=== PATIENT | female | born 1965 | race Two or more races ===

== ENCOUNTER 2025-07-16 13:13 | Day surgery (SDC) | payer BC, SELFPAY ==
--- NOTE | 2025-07-11 07:21 | P.HP_ITS ---
History of Present Illness *Admission Date: 07/16/25 *History of present illness: Mrs. Ang is a 59-year-old female who is here for diagnostic/therapeutic EGD. The patient does have recurrent dysphagia with a history of a Schatzki's ring necessitating dilation multiple times. Her last EGD with dilation was in July 2023. She does have some esophageal spasm/dyskinesia and has taken peppermint oil as a smooth muscle relaxant. The patient also has a history of mild EPI with fecal elastase of 124 mcg/g. She also had a C13 sucrose breath test showing 0% sucrose digestion and had been on Starchway. She did have a colonoscopy in July 2023 at which time she had 5 polyps (tubular adenomas x 4/hyperplastic polyp x 1) removed and extensive left-sided diverticulosis. She is on 5-year surveillance interval (July 2028). The examination is deemed medically necessary for diagnostic EGD. The patient has been seen, interviewed and examined prior to the procedure by both myself and the anesthesia provider. [facility] Disclaimer: The information contained in this section may have been updated after the patient was seen, as this information can be updated by other users. Medical History Osteoarthritis History of gastroesophageal reflux (GERD) Hyperlipidemia Surgical History H/O vein stripping History of cholecystectomy H/O foot surgery Hx of breast reduction, elective Family History Father Family history of stroke Mother Family history of cancer Social History (Updated 07/16/25 @ 14:08 by Funmilayo Gerber CRNA) Smoking Status: Never smoker alcohol intake: current substance use type: unknown current occupational status: retired Travel in the last 8 weeks?: None Have you lived/traveled outside [place] in past 30 days?: No Contact w/someone who lives/traveled outside [place] past 30 days?: No Exposure to someone with infectious disease in past 14 days?: No Do you have a fever (greater than 100.4 F or 38 C)?: No Have you tested positive for COVID-19?: No Exposed to someone with COVID-19 in past 14 days?: No Do you have a sore throat?: No Do you have a cough?: No Do you have any weakness?: No Are you experiencing any nausea/vomitting?: No Do you have any diarrhea?: No Are you experiencing any unusual bleeding?: No Do you have any muscle aches/pain?: No Do you have any abdominal pain?: No Are you experiencing loss of taste or smell?: No Review of Systems Review of Systems Review of systems (narrative): Negative *Cardiovascular Comments: Negative *Gastrointestinal Comments: Negative *Genitourinary Comments: Negative *Musculoskeletal Comments: Negative *Neurologic Comments: Negative Meds Home Medications and Allergies Home Medications ?Medication ?Instructions ?Recorded ?Confirmed ?Type ascorbic acid (vitamin C) 250 mg 250 mg PO DAILY 07/1307/13/25 History tablet cholecalciferol (vitamin D3) 100 1,000 unit PO DAILY 1 09/13/24 07/13/25 History mcg (4,000 unit) capsule fluoxetine 20 mg capsule (Prozac) 20 mg PO DAILY 07/1307/13/25 History rosuvastatin 20 mg tablet 20 mg PO DAILY 07/13/2507/02 History turmeric 400 mg capsule 400 mg PO DAILY 07/13/2507/26 History New Prescriptions to Start Prescriptions: Allergies Allergy/AdvReac Type Severity Reaction Status Date / Time No Known Allergies Allergy Verified 07/16/25 13:55 Exam *Routine HEENT Exam Head: Present normocephalic Eye: Present EOMI and PERRL ENT: Present mucous membranes moist *Routine Neck Exam Neck: Present supple *Routine Respiratory Exam Respiratory: Present CTA bilaterally *Routine Cardiovascular Exam Cardiovascular: Present RRR *Routine Abdominal Exam Abdominal: Present soft and normoactive bowel sounds; Absent tenderness *Routine Rectal Exam Rectal:: deferred *Routine Genitalia Exam Genitalia:: deferred *Routine Extremities Exam Extremities: Absent cyanosis, clubbing or edema *Routine Skin Exam Skin: Present warm; Absent rash *Routine Neurological Exam Neurological: Present alert and oriented X3 Assessment and Plan *Assessment and plan (1) Dysphagia: Status: Acute Category: Medical Code(s): R13.10 - Dysphagia, unspecified (2) History of esophageal stricture: Status: Acute Category: Medical Code(s): Z87.19 - Personal history of other diseases of the digestive system (3) Schatzki's ring: Status: Acute Category: Medical Code(s): K22.2 - Esophageal obstruction Plan A/P: 1. Recurrent dysphagia with history of esophageal stricture/Schatzki's ring is the preprocedural diagnosis. The patient will be anesthetized/sedated using MAC sedation. The patient has been seen and examined. Cardiac and lung assessment prior to the examination is stable. Proceed with planned diagnostic/therapeutic EGD.
[2025-07-13 15:13] VITALS: BMI 26.6
--- NOTE | 2025-07-16 06:55 | HMH.PROCNOTE ---
[facility] Procedure Note Date: 07/16/25 Time: 14:53 Procedure Note:: Upper Endoscopy Procedure Report: Esophagogastroduodenoscopy with cold biopsies and TTS balloon dilation Endoscopost: Binu Shore II, MD Referring Physician: Catherine Larkin MD Date of Procedure: July 16, 2025 Equipment: Olympus GIF-1100 standard upper endoscope Sedation: MAC sedation Indications: Mrs. Ang is a 59-year-old female who is here for diagnostic/therapeutic EGD. The patient does have recurrent dysphagia with a history of a Schatzki's ring necessitating dilation multiple times. Her last EGD with dilation was in July 2023. She does have some esophageal spasm/dyskinesia and has taken peppermint oil as a smooth muscle relaxant. The patient also has a history of mild EPI with fecal elastase of 124 mcg/g. She also had a C13 sucrose breath test showing 0% sucrose digestion. The patient did try Creon and Starchway but felt that this was making her symptoms worse. She did have a colonoscopy in July 2023 at which time she had 5 polyps (tubular adenomas x 4/hyperplastic polyp x 1) removed and extensive left-sided diverticulosis. She is on 5-year surveillance interval (July 2028). The examination is deemed medically necessary for diagnostic EGD. Procedure: Prior to the procedure, a history and physical exam was performed, and patient's medications and allergies were reviewed. The risks, benefits and alternatives of the sedation and procedure were discussed with the patient. All questions were answered and informed consent was obtained. The patient was brought to the procedure room. Patient identification and proposed procedure were verified by the physician and the nurse. The patient was placed in a left lateral decubitus position and the scope was passed under direct vision. Throughout the procedure, the patient's blood pressure, pulse, and oxygen saturations were monitored continuously. The upper GI endoscopy was accomplished without difficulty. The patient tolerated the procedure well. Findings: The scope was passed directly into the upper esophagus and advanced to the third portion of the duodenum. The post bulbar duodenum and duodenal bulb were normal with normal mucosa and conniventes. 2 cold biopsies were taken from the second portion of the duodenum for the disaccharidase assay. The scope was withdrawn through a normal duodenal bulb and pylorus into the stomach. There was bile reflux with mild linear reactive gastropathy of the antrum and body. Cold biopsies were taken from the antrum and lesser curvature. Upon retroflexion there was a 2 to 3 cm hiatal hernia. The scope was then withdrawn into the esophagus. There was no evidence of reflux esophagitis or De Souza's. There was a distal Schatzki's ring. There were tertiary contractions and evidence of mild esophageal dysmotility. There were no webs, corrugation, furrowing, inlet patch or Caroline. The entire esophagus was dilated to 60 [place]/20 mm with a TTS hydrostatic balloon. There was shattering of the Schatzki's ring that was originally 16 mm in diameter. There was mild resistance at the cricopharyngeus. The remainder of the esophageal mucosa was normal. Impression: 1. 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 Schatzki's ring dilated to 20 mm 3. Nonerosive GERD with mild esophageal dysmotility and medium size 2 to 3 cm hiatal hernia 4. Bile reflux with mild linear reactive gastropathy of antrum and body Plan: I will follow-up the biopsies and disaccharidase assay. We will discuss additional treatment options.
[2025-07-16 13:55] VITALS: BP 126/57; PULSE 80; RESP 18; TEMP 36.1; O2SAT 93
[2025-07-16] MEDS: LACTATED RINGERS 1000ML 1,000 ML 50 ML IV (14:03)
--- NOTE | 2025-07-16 14:07 | EXP.ANES.CKL ---
[facility] Disclaimer: The information contained in this section may have been updated after the patient was seen, as this information can be updated by other users. Medical History Osteoarthritis History of gastroesophageal reflux (GERD) Hyperlipidemia Surgical History H/O vein stripping History of cholecystectomy H/O foot surgery Hx of breast reduction, elective Family History Father Family history of stroke Mother Family history of cancer Social History Smoking Status: Never smoker alcohol intake: current substance use type: unknown current occupational status: retired Travel in the last 8 weeks?: None [facility] Anesthesia Checklist Patient Identification Patient Identification: Arm Band and Verbal (Name & ) Structural Data Admitted From: Home Planned Operative Procedure/s: EGD Consent for Planned Operative Procedure(s) Verified: Yes Verified Documents: Surgical Consent and History and Physical NPO Status Verified Time NPO: 00:00 Additional verifications Anesthesia Reactions: No Previous Colonoscopy: Yes Airway Assessment Mallampati Score:: Class II C-Spine Mobility Assessed: Yes TMJ Mobility Assessed: Yes Dentition: Good Dentition Neurological Assessment Level of Consciousness: Awake, Alert and Appropriate Hx Seizures: No Numbness or tingling in extremities: No Anesthesia Plan Anesthesia Risk discussed: Yes Anesthesia Plan: Verified ASA Class: II Anesthesia Type: MAC
[2025-07-16 14:55] VITALS: BP 105/74; PULSE 79; RESP 18; TEMP 36.1; O2SAT 93
[2025-07-16 15:10] VITALS: BP 111/67; PULSE 82; RESP 18; TEMP 36.1; O2SAT 96
[2025-07-16 15:25] VITALS: BP 122/73; PULSE 78; RESP 18; TEMP 36.1; O2SAT 97
[2025-07-20 16:11] LABS: Interpretation Notes (.); Lactase 7.14 (>/= 14.0); Maltase 297.93 (>/= 110.0); Palatinase 8.03 (>/= 8.5); Reference Notes (.); Sucrase 57.08 (>/= 25.0)
== END 2025-07-16 15:35 | disposition home or self-care (01) ==
PROVIDERS: PCP Internal Medicine; Visit Provider Internal Medicine Gastroenterology
PROC: 0DJ08ZZ Inspection of Upper Intestinal Tract, Via Natural or Artificial Opening Endoscopic (ICD-10-PCS; CPT 43239; principal; 2025-07-16 15:00)
DX: K21.9 Gastro-esophageal reflux disease without esophagitis (principal); K31.89 Other diseases of stomach and duodenum; K44.9 Diaphragmatic hernia without obstruction or gangrene; K22.4 Dyskinesia of esophagus; K22.2 Esophageal obstruction; E78.5 Hyperlipidemia, unspecified; M19.90 Unspecified osteoarthritis, unspecified site; Z86.0102 Personal history of hyperplastic colon polyps; Z87.19 Personal history of other diseases of the digestive system; Z86.0101 Personal history of adenomatous and serrated colon polyps; Z90.49 Acquired absence of other specified parts of digestive tract
CPT/HCPCS: 43239; 43249; 82657; C1726; J2003; J2704; J7120